=== PATIENT | female | born 1985 | race Two or more races ===

== ENCOUNTER 2019-11-09 13:39 | Emergency (ER) | payer BC ==
[~2019-11-09] VITALS: Ht 167.6 cm; Wt 63.6 kg
[2019-11-09 13:52] VITALS: BP 121/77
== END 2019-11-09 15:11 | disposition home or self-care (01) ==
LOC: ED 15:04
DX: S06.0X0A Concussion without loss of consciousness, initial encounter (principal); R42 Dizziness and giddiness; W22.8XXA Striking against or struck by other objects, initial encounter; Y93.89 Activity, other specified; Y92.098 Other place in other non-institutional residence as the place of occurrence of the external cause; Y99.8 Other external cause status
CPT/HCPCS: 99281

== ENCOUNTER 2020-02-25 17:30 | Emergency (ER) | payer BC ==
[~2020-02-25] VITALS: Ht 170.2 cm; Wt 68.7 kg
[2020-02-25 18:23] LABS: BASOPHILS % (AUTO) 0 % (0-1); EOSINOPHILS % (AUTO) 1 % (1-7); LYMPHOCYTES % (AUTO) 16 % (22-44); MEAN CORPUSCULAR HEMOGLOBIN 32.1 pg (27.0-34.8); MEAN CORPUSCULAR HGB CONC 34.1 g/dL (32.4-35.8); MEAN PLATELET VOLUME 8.6 fL (7.4-10.4); MONOCYTES % (AUTO) 9 % (2-9); NEUTROPHILS % (AUTO) 74 % (42-75); PLATELET COUNT 287 x10^3/uL (130-400); RED BLOOD COUNT 4.11 x10^6/uL (3.82-5.3); RED CELL DISTRIBUTION WIDTH 13.3 % (9.6-15.2)
--- NOTE | 2020-02-25 18:27 | NUR ---
Pt c/o SOB with chest pressure starting last night. Pt states cough, sore throat, intermittant fevers since late January. Recent travel to [place].
[2020-02-25 18:29] LABS: MD NO
[2020-02-25 18:31] LABS: ALANINE AMINOTRANSFERASE 53 U/L (12-78); ALBUMIN 3.2 g/dL (3.4-5.0); ANION GAP 7 mmol/L (5-15); CALCIUM 7.8 mg/dL (8.5-10.1); CHLORIDE 107 mmol/L (98-107); CREATININE 0.72 mg/dL (0.55-1.02)
[2020-02-25 18:33] LABS: ALKALINE PHOSPHATASE 87 U/L (45-117); BILIRUBIN,TOTAL 0.2 mg/dL (0.2-1.0); TOTAL PROTEIN 7.7 g/dL (6.4-8.2)
--- NOTE | 2020-02-25 18:54 | NUR ---
Report provided to Adry LOPEZ
[2020-02-25 20:04] VITALS: BP 107/60
--- NOTE | 2020-02-25 20:06 | NUR ---
D/c discussed with pt. Verbalizes understanding. States she will f/u with PCP/OB tomorrow. Verbalizes understanding r/t returning to ED with worsening sx. Ambulating independently, steady gait
== END 2020-02-25 20:07 | disposition home or self-care (01) ==
LOC: ED 20:00
DX: O26.892 Other specified pregnancy related conditions, second trimester (principal); R06.00 Dyspnea, unspecified; B34.9 Viral infection, unspecified; R05 Cough; R11.2 Nausea with vomiting, unspecified; R51.9 Headache, unspecified; R50.9 Fever, unspecified; R07.89 Other chest pain; M79.10 Myalgia, unspecified site; Z3A.19 19 weeks gestation of pregnancy
CPT/HCPCS: 36415; 71045; 80053; 85025; 93005; 99285

== ENCOUNTER 2020-05-13 15:56 | Emergency (ER) | payer BC ==
[~2020-05-13] VITALS: Ht 170.2 cm; Wt 73.4 kg
[2020-05-13] MEDS ORDERED: PREN1TAB62 PO (16:29)
--- NOTE | 2020-05-13 16:30 | NUR ---
PT IS A 34F WHO IS 30WEEKS AND COMPLAINING OF BLURRED VISION FOR 2 DAYS AND PAIN IN THE RIGHT ARM AND TINGLING IN THE LEFT ARM. WAS SEEN BY HER OBGYN ON SATURDAY, BP AND URINE WERE FINE. IS AT THE BEDSIDE. PT DENIES ABD PAIN OR VAGINAL BLEEDING. DUE DATE IS 07/20/20. CALL LIGHT WITHIN REACH.
[2020-05-13 16:32] VITALS: BP 110/58
--- NOTE | 2020-05-13 17:09 | NUR ---
Onur RN note: Dr. Krishnamurthy requesting L&D be contacted for heart tones. This RN called L&D, spoke with hot car charger who reports they will come assess fetus.
--- NOTE | 2020-05-13 17:26 | NUR ---
PT'S FSBS 98, OK TO GO TO L&D PER DR REYNOLDS.
--- NOTE | 2020-05-13 17:28 | NUR ---
PT D/C FROM THE ER TO L&D
== END 2020-05-13 18:02 | disposition home or self-care (01) ==
LOC: ED 16:44
DX: O99.613 Diseases of the digestive system complicating pregnancy, third trimester (principal); O26.893 Other specified pregnancy related conditions, third trimester; K29.00 Acute gastritis without bleeding; G56.03 Carpal tunnel syndrome, bilateral upper limbs; Z3A.30 30 weeks gestation of pregnancy
CPT/HCPCS: 29125; 82962; 99283

== ENCOUNTER 2020-05-13 17:54 | Outpatient (CLI) | payer BC ==
[~2020-05-13] VITALS: Ht 170.2 cm; Wt 73.6 kg
[~2020-05-13 17:54] MED LIST: PREN1TAB62 PO
[2020-05-13 18:44] LABS: MICROSCOPIC INDICATED
[2020-05-13 18:51] LABS: CREATININE,URINE RANDOM 31.8 mg/dL
[2020-05-13 19:01] LABS: BASOPHILS % (AUTO) 0 % (0-1); EOSINOPHILS % (AUTO) 1 % (1-7); LYMPHOCYTES % (AUTO) 29 % (22-44); MEAN CORPUSCULAR HEMOGLOBIN 33.7 pg (27.0-34.8); MEAN CORPUSCULAR HGB CONC 34.8 g/dL (32.4-35.8); MEAN PLATELET VOLUME 8.3 fL (7.4-10.4); MONOCYTES % (AUTO) 8 % (2-9); NEUTROPHILS % (AUTO) 63 % (42-75); PLATELET COUNT 262 x10^3/uL (130-400); RED BLOOD COUNT 3.82 x10^6/uL (3.82-5.3); RED CELL DISTRIBUTION WIDTH 13.3 % (9.6-15.2)
[2020-05-13 19:05] LABS: CHLORIDE 106 mmol/L (98-107); MD NO
[2020-05-13 19:11] LABS: ALANINE AMINOTRANSFERASE 37 U/L (12-78); ALBUMIN 2.8 g/dL (3.4-5.0); ALKALINE PHOSPHATASE 134 U/L (45-117); ANION GAP 7 mmol/L (5-15); BILIRUBIN,TOTAL 0.2 mg/dL (0.2-1.0); CALCIUM 8.5 mg/dL (8.5-10.1); CREATININE 0.72 mg/dL (0.55-1.02); TOTAL PROTEIN 6.8 g/dL (6.4-8.2)
[2020-05-13 19:13] LABS: BILIRUBIN, DIRECT < 0.1 mg/dL (0.1-0.2)
== END 2020-05-13 19:35 | disposition home or self-care (01) ==
LOC: LDOP 17:54
PROVIDERS: ATTEND Obstetrics & Gynecology
DX: O26.893 Other specified pregnancy related conditions, third trimester (principal); R51.9 Headache, unspecified; R20.0 Anesthesia of skin; H53.8 Other visual disturbances; R53.1 Weakness; Z3A.30 30 weeks gestation of pregnancy
CPT/HCPCS: 36415; 59025; 80053; 81001; 82248; 82570; 84156; 84550; 85025; 87086

== ENCOUNTER 2020-06-28 08:29 | Inpatient (IN) | payer BC ==
[~2020-06-28] VITALS: Ht 170.2 cm; Wt 75.0 kg
[2020-06-28 09:45] VITALS: BP 116/59
[2020-06-28] MEDS ORDERED: ONDANSETRON 2MG/ML, 2ML IVPush PRN (10:00)
[2020-06-28] MEDS ORDERED: TERBUTALINE 1 MG/ML, 1ML IVPush PRN (10:00)
[2020-06-28] MEDS ORDERED: TERBUTALINE 1 MG/ML, 1ML SQ PRN (10:00)
[2020-06-28] MEDS ORDERED: OXYTOCIN 30U/ 0.9% NaCL 500ML 500 ML IV PRN (10:00)
[2020-06-28] MEDS ORDERED: CALCIUM CARBONATE 500 MG TAB.CHEW PO PRN (10:00)
[2020-06-28] MEDS ORDERED: OXYTOCIN 30U/ 0.9% NaCL 500ML 500 ML IV ONE (10:00)
[2020-06-28] MEDS ORDERED: FENTANYL PF 100 MCG/2ML IV PRN (10:00)
[2020-06-28] MEDS ORDERED: MISOPROSTOL 25 MCG TABLET VG PRN (10:00)
[2020-06-28] MEDS ORDERED: FENTANYL PF 100 MCG/2ML IVPush PRN (10:00)
[2020-06-28 10:02] LABS: BASOPHILS % (AUTO) 0 % (0-1); EOSINOPHILS % (AUTO) 1 % (1-7); LYMPHOCYTES % (AUTO) 25 % (22-44); MEAN CORPUSCULAR HEMOGLOBIN 33.1 pg (27.0-34.8); MEAN CORPUSCULAR HGB CONC 34.2 g/dL (32.4-35.8); MONOCYTES % (AUTO) 8 % (2-9); NEUTROPHILS % (AUTO) 66 % (42-75); PLATELET COUNT 250 x10^3/uL (130-400); RED BLOOD COUNT 4.13 x10^6/uL (3.82-5.3); RED CELL DISTRIBUTION WIDTH 13.4 % (9.6-15.2)
[2020-06-28 10:05] LABS: MD NO
[2020-06-28] MEDS ORDERED: AMPICILLIN 2 GM in SODIUM CHLORIDE 0.9% 100 ML IVPB STA (10:06)
[2020-06-28] MEDS: LACTATED RINGERS 1,000 ML IV SCH ×2 (10:32→18:55)
[2020-06-28] MEDS ORDERED: MISOPROSTOL 25 MCG TABLET ONE (10:55)
[2020-06-28] MEDS ORDERED: D5%-LACTATED RINGERS 1,000 ML IV SCH (11:00)
[2020-06-28] MEDS: AMPICILLIN 1 GM in SODIUM CHLORIDE 0.9% 100 ML IVPB SCH ×3 (14:57→20:30)
[2020-06-28] MEDS ORDERED: OXYTOCIN 30U/ 0.9% NaCL 500ML 500 ML ONE (17:30)
[2020-06-28] MEDS ORDERED: LIDOCAINE 1%, 20ML ONE (17:30)
[2020-06-28] MEDS ORDERED: MISOPROSTOL 200 MCG TABLET ONE (17:31)
[2020-06-28] MEDS ORDERED: NEWBORN KIT ONE (17:31)
[2020-06-29] MEDS: IBUPROFEN 600 MG TABLET PO PRN ×4 (00:40→18:19)
[2020-06-29] MEDS ORDERED: IBUPROFEN 600 MG TABLET ONE (00:43)
[2020-06-29] MEDS ORDERED: OXYTOCIN 30U/ 0.9% NaCL 500ML 500 ML ONE (00:55)
[2020-06-29] MEDS ORDERED: CALCIUM CARBONATE 500 MG TAB.CHEW PO PRN (02:00)
[2020-06-29] MEDS: OXYTOCIN 30U/ 0.9% NaCL 500ML 500 ML IV SCH ×9 (02:00→22:00)
[2020-06-29] MEDS ORDERED: MISOPROSTOL 200 MCG TABLET PR PRN (02:00)
[2020-06-29] MEDS ORDERED: BISACODYL 10 MG SUPP PR PRN (02:00)
[2020-06-29] MEDS ORDERED: ACETAMINOPHEN 325 MG TABLET PO PRN ×2 (02:00)
[2020-06-29] MEDS ORDERED: SIMETHICONE 80 MG CHEW TAB PO PRN (02:00)
[2020-06-29] MEDS ORDERED: ONDANSETRON 2MG/ML, 2ML IV PRN (02:00)
[2020-06-29] MEDS ORDERED: HYDROcodone/APAP 5/325 TABLET PO PRN ×2 (02:00)
[2020-06-29 02:30] VITALS: BP 100/64
[2020-06-29 05:56] VITALS: BP 91/55
[2020-06-29 07:58] LABS: MEAN CORPUSCULAR HEMOGLOBIN 32.8 pg (27.0-34.8); MEAN CORPUSCULAR HGB CONC 33.8 g/dL (32.4-35.8); MEAN PLATELET VOLUME 8.8 fL (7.4-10.4); PLATELET COUNT 246 x10^3/uL (130-400); RED BLOOD COUNT 4.02 x10^6/uL (3.82-5.3); RED CELL DISTRIBUTION WIDTH 13.4 % (9.6-15.2)
[2020-06-29 08:01] VITALS: BP 107/65
[2020-06-29 08:09] LABS: ALANINE AMINOTRANSFERASE 35 U/L (12-78); ALBUMIN 2.2 g/dL (3.4-5.0); ANION GAP 7 mmol/L (5-15); CALCIUM 8.4 mg/dL (8.5-10.1); CHLORIDE 112 mmol/L (98-107); CREATININE 0.66 mg/dL (0.55-1.02)
[2020-06-29 08:11] LABS: ALKALINE PHOSPHATASE 218 U/L (45-117); BILIRUBIN,TOTAL 0.4 mg/dL (0.2-1.0); TOTAL PROTEIN 5.8 g/dL (6.4-8.2)
[2020-06-29 08:25] LABS: MD YES
[2020-06-29 08:26] LABS: BAND#(MANUAL) 0.66 x10^3/uL; BANDS%(MANUAL) 4 % (0-7); LYMPH#(MANUAL) 1.48 x10^3/uL (1-3.4); LYMPHS% (MANUAL) 9 % (22-44); MONOS#(MANUAL) 0.82 x10^3/uL (0.3-2.7); MONOS% (MANUAL) 5 % (2-9); SEG#(MANUAL) 13.45 x10^3/uL (1.8-6.8); SEGS% (MANUAL) 82 % (42-75)
[2020-06-29 08:27] LABS: <PLATELET ESTIMATE> ADEQUATE; <PLT MORPHOLOGY> NORMAL PLT MORPH; <RBC MORPHOLOGY> NORMAL
[2020-06-29] MEDS: PRENATAL VIT/IRON/FA 1 EACH TABLET PO SCH (09:00)
[2020-06-29] MEDS ORDERED: DIPH,PERTUSS(ACELL),TET VAC/PF NC IM-VACC ONE (12:00)
[2020-06-29 13:15] VITALS: BP 105/68
[2020-06-29 19:30] VITALS: BP 117/67
[2020-06-29] MEDS: DOCUSATE 100 MG CAPSULE PO PRN (21:14)
[2020-06-30] MEDS: IBUPROFEN 600 MG TABLET PO PRN ×2 (01:20→09:58)
[2020-06-30 01:23] VITALS: BP 105/69
[2020-06-30] MEDS ORDERED: IBUP-1222 PO (06:00)
[2020-06-30 07:43] VITALS: BP 117/71
[2020-06-30] MEDS: OXYTOCIN 30U/ 0.9% NaCL 500ML 500 ML IV SCH (08:00)
[2020-06-30] MEDS: PRENATAL VIT/IRON/FA 1 EACH TABLET PO SCH (09:00)
[2020-06-30] MEDS: DOCUSATE 100 MG CAPSULE PO PRN (09:58)
== END 2020-06-30 14:35 | disposition home or self-care (01) | DRG 805 ==
LOC: LDIP 09:25 → 2NW 06-29 02:19
PROVIDERS: ADMIT Obstetrics & Gynecology; ATTEND Obstetrics & Gynecology
PROC: 10E0XZZ Delivery of Products of Conception, External Approach (ICD-10-PCS; principal; 2020-06-29)
PROC: 10907ZC Drainage of Amniotic Fluid, Therapeutic from Products of Conception, Via Natural or Artificial Opening (ICD-10-PCS; 2020-06-29)
PROC: 3E0P7VZ Introduction of Hormone into Female Reproductive, Via Natural or Artificial Opening (ICD-10-PCS; 2020-06-29)
PROC: 0UQMXZZ Repair Vulva, External Approach (ICD-10-PCS; 2020-06-29)
DX: O26.62 Liver and biliary tract disorders in childbirth (principal); K83.1 Obstruction of bile duct; Z37.0 Single live birth; O71.82 Other specified trauma to perineum and vulva; Z87.410 Personal history of cervical dysplasia; Z3A.37 37 weeks gestation of pregnancy; Z88.1 Allergy status to other antibiotic agents; Z20.822 Contact with and (suspected) exposure to COVID-19
CPT/HCPCS: 36415; 76815; 80053; 85025; 86592; 86850; 86900; 87635; 90715; G0378; J0290; J2590; J7120